=== PATIENT | female | born 1970 | race Caucasian/White ===

== ENCOUNTER → 2021-01-11 | Outpatient (CLI) | payer BC ==
[~2021-01-11] MED LIST: BIRTH CONTROL; CODBUTACEC; Cymbalta20 MG PO; GABA300 PO; LOSA25 PO; Maxalt10 MG; PROM25; Percocet 5-3251 EACH PO; SUMA25 PO
== END | disposition home or self-care (01) ==
LOC: LAB SHORT 11:20 → LAB 11:20
DX: J02.9 Acute pharyngitis, unspecified (principal)
CPT/HCPCS: 87081

== ENCOUNTER 2024-01-10 08:14 | Day surgery (SDC) | payer OTHER ==
[~2024-01-10] VITALS: Ht 157.5 cm; Wt 80.0 kg
[2024-01-10] VITALS (17 sets, daily range): BP systolic 110–140; BP diastolic 54–78
[~2024-01-10 08:14] MED LIST changes: +AMIT50 PO; +CLON.5 PO; +CYCL10 PO; +ELET40TA PO; +Lactated Ringer's 1,000 ML IV SCH; +MOUNJARO5 MG/0.5 M SC; +PREG75 PO; +QULIPTA60 MG PO; +TRAZ50 PO; +propofoL 20 ML IV ONE
--- NOTE | 2024-01-10 08:39 | NUR ---
Ambulatory in Day Surgery. History, Chart, Medications and Allergies reviewed before start of procedure. Lungs clear T/O to Auscultation. Patient confirms NPO status and agrees with scheduled surgery. Pre-Op teaching done. Pt verbalizes understanding. Patient States Post-Procedure ride home has been arranged.
--- NOTE | 2024-01-10 08:40 | NUR ---
01/10/24 0840 Nesha Burrell CONFIRMED AND REVIEWED H&P, MEDCICATIONS, ALLERGIES, MEDICAL HISTORY, RESPIRATORY HISTORY, VITAL SIGNS, 3-LEAD EKG, CONSENTS, AND PHYSICIAN ORDERS. PATIENT CONFIRMS NPO STATUS AND AGREES WITH SCHEDULED PROCEDURE. MONITOR INTACT WITH CONTINUOUS PULSE OXIMETRY, CAPNOGRAPHY, 3-LEAD EKG, INTERMITTENT BP. SUPPLEMENTAL O2 TO BE TITRATED THROUGHOUT PROCEDURE TO MAINTAIN O2 SATURATION ABOVE 90%. PATIENT DETERMINED TO BE ASA APPROPRIATE FOR PROPOFOL SEDATION PRIOR TO START OF PROCEDURE BY DR. COLÓN
--- NOTE | 2024-01-10 09:18 | NUR ---
PT TO DAY SURGERY STEP DOWN FROM COLONOSCOPY; BEDSIDE REPORT RECEIVED. PT IS AWAKE, ALERT AND ORIENTED; ABLE TO MOVE SELF IN BE. PT HAS NO COMPLAINTS AT THIS TIME.
--- NOTE | 2024-01-10 09:26 | NUR ---
PT TOLERATING PO FLUIDS WELL. Discharge instructions reviewed with patient. Patient verbalizes understanding. Copy given to patient to take home. Patient States Post-Procedure ride home has been arranged.
--- NOTE | 2024-01-10 09:37 | NUR ---
Discharged via wheelchair to private car for ride home.
--- NOTE | 2024-01-10 09:37 | NUR ---
Patient up to Ambulate independently. Gait steady.
== END 2024-01-10 09:38 | disposition home or self-care (01) ==
LOC: ORSCMMR 08:14 → ORD 09:00 → ORSCMMR 09:00
PROVIDERS: Internal Medicine Gastroenterology
PROC: 0DBH8ZX Excision of Cecum, Via Natural or Artificial Opening Endoscopic, Diagnostic (ICD-10-PCS; principal; 2024-01-10 09:00)
DX: Z12.11 Encounter for screening for malignant neoplasm of colon (principal); Z83.719 Family history of colon polyps, unspecified; K63.5 Polyp of colon; K63.89 Other specified diseases of intestine; K64.8 Other hemorrhoids; M79.7 Fibromyalgia; Z98.84 Bariatric surgery status; Z79.85 Long-term (current) use of injectable non-insulin antidiabetic drugs; Z79.899 Other long term (current) drug therapy
CPT/HCPCS: 88305; J2704; J7120